=== PATIENT | female | born 2000 | race American Indian/Alaskan Native ===

== ENCOUNTER 2021-02-12 12:11 | Emergency (ER) | payer MEDICAID ==
[2021-02-12] MEDS ORDERED: LIDOCAINE (1%) 10 MG/1 ML VIAL 20 ML MDV INFILTRATI ONE (12:41)
--- NOTE | 2021-02-12 13:41 | Emergency Department Report ---
- General Chief complaint: Skin/Abscess/Foreign Body Stated complaint: CYST ON RT ARM Time Seen by Provider: 02/12/21 12:36 Source: patient Mode of arrival: Ambulatory Limitations: No Limitations - History of Present Illness Initial comments: Patient is a 21-year-old female presents emergency room with complaints of a possible abscess to the right axilla that began 3 days ago. He states that she was told that she may have a history of hydradenitis suppurativa. She states that she last had an I&D performed approximately 6 months ago to the left axilla. She denies any drainage, fever, chills, vomiting. Past medical history of migraines and craniotomy. No allergies to medications. Last menstrual cycle last week - Related Data Previous Rx's Medication Instructions Recorded Last Taken Type Sulfamethoxazole/Trimethoprim 1 each PO BID 7 Days #14 tablet 02/12/21 Unknown Rx [Bactrim DS TAB] Allergies Allergy/AdvReac Type Severity Reaction Status Date / Time No Known Allergies Allergy Unverified 02/12/21 12:13 Abscess Boil HPI - HPI Chief Complaint: Skin/Abscess/Foreign Body Stated Complaint: CYST ON RT ARM Time Seen by Provider: 02/12/21 12:36 Home Medications: Previous Rx's Medication Instructions Recorded Last Taken Type Sulfamethoxazole/Trimethoprim 1 each PO BID 7 Days #14 tablet 02/12/21 Unknown Rx [Bactrim DS TAB] Allergies/Adverse Reactions: Allergies Allergy/AdvReac Type Severity Reaction Status Date / Time No Known Allergies Allergy Unverified 02/12/21 12:13 ED Review of Systems ROS: Stated complaint: CYST ON RT ARM Other details as noted in HPI Comment: All other systems reviewed and negative ED Past Medical Hx - Surgical History Additional Surgical History: BRAIN SURGERY X 2 - Medications Home Medications: Home Medications Medication Instructions Recorded Confirmed Last Taken Type Sulfamethoxazole/Trimethoprim 1 each PO BID 7 Days #14 tablet 02/12/21 Unknown Rx [Bactrim DS TAB] ED Physical Exam - General Limitations: No Limitations General appearance: alert, in no apparent distress - Head Head exam: Present: atraumatic, normocephalic - Eye Eye exam: Present: normal appearance - ENT ENT exam: Present: mucous membranes moist - Neurological Exam Neurological exam: Present: alert, oriented X3 - Psychiatric Psychiatric exam: Present: normal affect, normal mood - Skin Skin exam: Present: warm, dry, other (3 cm area of induration present to the left axilla, mild fluctuance, no opening or drainage, no necrosis, no surrouding cellulitis) ED Course Vital Signs 02/12/21 02/12/21 12:15 13:58 Temperature 97.9 F 97.8 F Pulse Rate 98 H 82 Respiratory 18 18 Rate Blood Pressure 101/63 Blood Pressure 106/66 [Left] O2 Sat by Pulse 100 100 Oximetry - I & D Right Arm Type of Procedure: Simple Site: right axilla Blade Size: 11 I & D Procedure: betadine prep, sterile drapes applied, sterile dressing applied Progress: Verbal consent obtained by patient Betadine prep, sterile wraps applied, 2 cc of 1% lidocaine with epinephrine used anesthetic, 11 blade used to make a 1 cm incision, no drainage expressed, patient tolerated well, no complications, bleeding controlled, sterile dressing applied ED Medical Decision Making - Medical Decision Making Patient is a 21-year-old female presents emergency room with complaints of a possible abscess to the right axilla that began 3 days ago. He states that she was told that she may have a history of hiadradenitis suppurativa. She states that she last had an I&D performed approximately 6 months ago to the left axilla. She denies any drainage, fever, chills, vomiting. Past medical history of migraines and craniotomy. No allergies to medications. Last menstrual cycle last week. Vitals are stable. On exam:3 cm area of induration present to the left axilla, mild fluctuance, no opening or drainage, no necrosis, no surrouding cellulitis. Incision and drainage performed per procedure note wi thout any purulent drainage expressed. Could be related to cyst versus potential reactive lymph node vs her hiadrenitis. Patient be referred to dermatology for further evaluation. Patient given prescription for medication to cover for infectious causes. No signs of surrounding cellulitis. Advised patient Please take medication as prescribed. Please do warm compresses 3 times a day. Follow-up with a physician general practice. Return to emergency room for any new or worsening symptoms. Critical care attestation.: If time is entered above; I have spent that time in minutes in the direct care of this critically ill patient, excluding procedure time. ED Disposition Clinical Impression: Lump of axilla Qualifiers: Laterality: right Qualified Code(s): R22.31 - Localized swelling, mass and lump, right upper limb Disposition: 01 HOME / SELF CARE / HOMELESS Is pt being admited?: No Does the pt Need Aspirin: No Condition: Stable Additional Instructions: Please take medication as prescribed. Please do warm compresses 3 times a day. Follow-up with a physician general practice. Return to emergency room for any new or worsening symptoms. [facility] [employer] in [place], [place] Address: [address] [place] [address] [facility] [place] [employer] Operator in [place] [address]: [address] [place] [address] [facility] Located in: [facility] Address[address] [place] [address] [employer] [facility] [employer] D[employer] Operator in [place], [place] Address: [address] [address] Prescriptions: Sulfamethoxazole/Trimethoprim [Bactrim DS TAB] 1 each PO BID 7 Days #14 tablet Referrals: a, physician general practice [Other] - 3-5 Days Forms: Work/School Release Form(ED) Time of Disposition: 13:39 Print Language: SERBIAN
[2021-02-12 14:00] VITALS: BP 106/66
== END 2021-02-12 14:00 | disposition home or self-care (01) ==
LOC: ED 12:11
DX: L02.411 Cutaneous abscess of right axilla (principal); Z79.899 Other long term (current) drug therapy
CPT/HCPCS: 99281